=== PATIENT | male | born 1960 | race American Indian/Alaskan Native ===

== ENCOUNTER 2016-08-06 15:47 | Inpatient (IN) | payer SELFPAY ==
[2016-08-06] MEDS ORDERED: ATIVAN ONE (17:07)
[2016-08-06 17:11] LABS: Basophils % (Auto) 0.8 % (0.0-1.8); Hematocrit 36.8 % (35.5-45.6); Hemoglobin 11.9 gm/dl (11.8-15.2); Mean Corpuscular HGB Conc 32 % (32-34); Mean Corpuscular Hemoglobin 30 pg (28-32); Mean Corpuscular Volume 92 fl (84-94); Platelet Count 313 K/mm3 (140-440); Red Cell Distribution Width 13.3 % (13.2-15.2); White Blood Count 5.2 K/mm3 (4.5-11.0)
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
[2016-08-06 17:13] LABS: INR 0.99 (0.87-1.13)
[2016-08-06] MEDS ORDERED: ATIVAN IV ONE (17:13)
[2016-08-06 17:14] LABS: Partial Thromboplastin Time 24.8 Sec. (24.2-36.6)
--- NOTE | 2016-08-06 17:20 | Cat Scan Report ---
FINAL REPORT PROCEDURE: CT HEAD/BRAIN WO CON TECHNIQUE: Computerized tomography of the head was performed without contrast material. HISTORY: neuro deficits < 6hrs or sx present upon awakening COMPARISON: No prior studies are available for comparison. FINDINGS: Likely small retention cyst is seen in the left maxillary sinus. Mastoid air cells are clear. No calvarial fracture is seen. Idiopathic calcifications are seen in the basal ganglia. Cerebral ventricles are normal in size. There may be minimal subacute to chronic small vessel ischemic changes in the supratentorial white matter. Normal variant cavum vergae is seen. No acute intracranial hemorrhage or mass effect is seen. IMPRESSION: Minimal white matter changes are seen in the supratentorial region likely due to subacute to chronic small vessel ischemic changes. An acute CVA is not seen. Correlation with MRI may be useful given patient's symptoms. Critical results were discussed with at Dr. Melendez at 5:16 p.m. on August 06, 2016.
[2016-08-06] MEDS ORDERED: KEPPRA 1,000 MG/NS 0.75% 100ML 100 ML IV ONE (17:21)
[2016-08-06 17:23] LABS: Anion Gap 19 mmol/L; Blood Urea Nitrogen 12 mg/dL (9-20); Carbon Dioxide 25 mmol/L (22-30); Chloride 97.6 mmol/L (98-107); Glucose 97 mg/dL (75-100); Potassium 4.2 mmol/L (3.6-5.0); Sodium 137 mmol/L (137-145)
[2016-08-06 17:26] LABS: Alanine Aminotransferase 16 units/L (7-56); Albumin 4.2 g/dL (3.9-5); Albumin/Globulin Ratio 1.3 %; Alkaline Phosphatase 48 units/L (35-129); Bilirubin,Direct < 0.2 mg/dL (0-0.2); Bilirubin,Indirect 0.2 mg/dL; Bilirubin,Total 0.4 mg/dL (0.1-1.2); Total Protein 7.4 g/dL (6.3-8.2)
--- NOTE | 2016-08-06 19:03 | Admit Criteria Form ---
Admission Criteria Documentation: SEIZURE Clinical Indications for Admission to Inpatient Care (Place 'X' for any and all applicable criteria): Admission is indicated for seizure and ANY ONE of the following(1)(2)(3)(4)(5): [ X]I. Inpatient admission required rather than observation care (Also use Seizure: Observation Care Criteria as appropriate) because of ANY ONE of the following: [ ]a) Altered mental status that is severe or persistent [ ]b) New focal neurologic deficit that is severe or persistent [ ]c) Metabolic disorder (eg, hypoglycemia, hyponatremia) that is severe or persistent [ ]d) Recurrent seizure [ ]e) Outpatient antiseizure regimen cannot be established (eg , patient cannot tolerate medication, initiation requires inpatient care) [ ]f) Need for ongoing intravenous infusion of antiseizure medication [ ]g) Cardiac arrhythmias of immediate concern [ ]h) Cerebral bleeding, hydrocephalus, or vasospasm monitoring (14) [ ]i) Increased intracranial pressure or cerebral edema monitoring (15) [X ]j) Other treatment or monitoring requiring inpatient admission [ ]II. Status epilepticus [A] or repetitive seizures not controlled with emergent treatment (6)(8) [ ]III. Brain disorder (eg, tumor, edema, and hydrocephalus) that requiring monitoring or intervention available only at inpatient level of care. [ ]IV. Brain insult (eg, severe trauma, stroke, drug toxicity, or withdrawal) that requires monitoring or intervention available only at inpatient level of care (10)(11) Extended stay beyond goal length of stay may be needed for (22) [ ]a) Complications of status epilepticus [ ]b) Refractory status epilepticus [ ]c) Etiology-specific therapy for conditions such as SYSTEMS PROTECTION TECHNICIAN infection, head injury,eclampsia, severe metabolic abnormalities, and brain tumor [ ]d) Residual neurologic damage, [ ]e) Initiation of significant change to anticonvulsant treatment [ ]f) Older patients (65 years or older) [ ]g) Patient requiring intubation (eg, to protect airway) The original [facility] content created by [employer] has been revised. The portions of the content which have been revised are identified through the use of italic text or in bold, and [facility] [employer] has neither reviewed nor approved the modified material. All other unmodified content is copyright [facility]. Please see references footnoted in the original [facility] edition 2016 Admission Criteria Met: Yes
--- NOTE | 2016-08-06 19:25 | Event Note ---
Date: 08/06/16 See H/p in reports Absence+ partial seizures HTN Syncope
[2016-08-06] MEDS ORDERED: TYLENOL PO PRN (19:27)
[2016-08-06] MEDS ORDERED: ZOFRAN IV PRN (19:27)
[2016-08-06] MEDS ORDERED: DILAUDID IV PRN (19:27)
[2016-08-06] MEDS ORDERED: MILK OF MAGNESIA PO PRN (19:27)
[2016-08-06] MEDS ORDERED: PERCOCET 5/325 PO PRN (19:27)
[2016-08-06] MEDS ORDERED: DULCOLAX PR PRN (19:27)
[2016-08-06] MEDS ORDERED: D5/0.45NS 1,000 ML IV SCH (20:00)
[2016-08-06 20:25] LABS: Urine Drugs of Abuse Note Disclamer
[2016-08-06] MEDS ORDERED: LOVENOX SUB-Q ONE (22:01)
[2016-08-06] MEDS: LOVENOX SUB-Q SCH (22:03)
[2016-08-06] MEDS: KEPPRA 750 MG in D5W 100 ML IV SCH (22:06)
[2016-08-06] MEDS ORDERED: SODIUM CHLORIDE FLUSH SYRINGE 10 ML IV PRN (23:18)
--- NOTE | 2016-08-07 00:46 | History and Physical Report ---
CHIEF COMPLAINT: Passed out with focal movement in the right lower extremity. HISTORY OF PRESENT ILLNESS: The patient and the family described that the patient had an absence episode for 30 minutes while at work. He remembers lowering and then he found himself in his boss's office. Also right facial droop and apparently had description of right lower extremity tonic clonic movements. History is very unclear and unreliable. The convincing part of the history is absence seizure for over 30 minutes. PAST MEDICAL HISTORY: Hypertension. Not taking the medications. PAST SURGICAL HISTORY: None. SOCIAL HISTORY: Former smoker. Stopped smoking about few years ago. FAMILY HISTORY: Significant for hypertension. REVIEW OF SYSTEMS: Significant for absence seizure versus syncope and right lower extremity focal seizure. Review of systems is otherwise negative. A 14-point review of systems is significant for absence seizure, possible syncope and right lower extremity tonic clonic movement. A 14-point review of systems is otherwise negative. PHYSICAL EXAMINATION: GENERAL: Middle aged male, cooperative during examination. VITAL SIGNS: Blood pressure is 150/73, temperature is 98.9, pulse is 89, respiratory rate is 17, O2 sats 97%. HEENT: Unremarkable. Pupils are equal and reactive. NECK: Supple, no lymphadenopathy, no thyromegaly. LUNGS: Clear to auscultation and percussion. Good air entry. CARDIOVASCULAR: S1, S2 heard. No gallop, no murmur, no rub. Apical impulse in left fifth intercostal space and midclavicular line. ABDOMEN: Soft and benign. No hepatosplenomegaly. No guarding, no rigidity. Hernial orifices are normal. EXTREMITIES: Good pedal pulses. No pedal edema. CENTRAL NERVOUS SYSTEM: Alert and oriented at the time of my evaluation. LABORATORY DATA: Significant for white count of 5200, H and H are 11.9 and 36.8, platelet count is 313,000. Protime is 13, INR is 0.99, PTT is 24.8. Sodium is 137, potassium is 4.2, chloride is 97.6, bicarbonate is 25, BUN and creatinine are 12 and 0.8, glucose is 97, and calcium is 9.0. Total bilirubin is 0.4, direct bili is less than 0.2, indirect bili is 0.2, AST is 18, alkaline phosphatase is 48. Troponin is less than 0.010. Total protein is 7.4, albumin is 4.2. CT of the head shows minimal white matter changes seen in the supratentorial region, likely subacute chronic small vessel ischemic changes. Acute CVA is not seen. ASSESSMENT AND PLAN: 1. Absence seizure. The patient was started on IV Keppra. The patient may not need Keppra at this point, but for prevention of tonic clonic seizures Keppra was given. 2. Syncope. Syncope workup in the form of carotid duplex scan and echocardiogram. 3. Cerebrovascular accident, possible. We will get MRI and MRA and echocardiogram and carotid duplex scan. 4. Hypertension, borderline. We will initiate him on Coreg 6.25 q.12 h. 5. Deep venous thrombosis prophylaxis, Lovenox 40 mg subcutaneous daily. In summary, the history is very unreliable and there is a possibility of absence seizure versus syncope. Workup involving the syncope, absence seizure, and ruling out CVA. Possible admission for 24 to 48 hours. JOB# [id number] KALI/BIRGIT EAGLE
[2016-08-07] MEDS ORDERED: ASPIRIN PO SCH (01:00)
[2016-08-07 05:49] LABS: Basophils % (Auto) 0.5 % (0.0-1.8); Eosinophils % (Auto) 0.5 % (0.0-4.3); Hemoglobin 11.6 gm/dl (11.8-15.2); Mean Corpuscular HGB Conc 33 % (32-34); Mean Corpuscular Hemoglobin 30 pg (28-32); Mean Corpuscular Volume 91 fl (84-94); Platelet Count 282 K/mm3 (140-440); Red Blood Count 3.86 M/mm3 (3.65-5.03); Red Cell Distribution Width 13.5 % (13.2-15.2); White Blood Count 4.9 K/mm3 (4.5-11.0)
[2016-08-07 06:04] LABS: Alanine Aminotransferase 12 units/L (7-56); Albumin 3.7 g/dL (3.9-5); Albumin/Globulin Ratio 1.2 %; Alkaline Phosphatase 42 units/L (35-129); BUN/Creatinine Ratio 11.11; Bilirubin,Total 0.5 mg/dL (0.1-1.2); Blood Urea Nitrogen 10 mg/dL (9-20); Calcium 8.6 mg/dL (8.4-10.2); Carbon Dioxide 28 mmol/L (22-30); Chloride 101.3 mmol/L (98-107); Glucose 86 mg/dL (75-100); Potassium 3.8 mmol/L (3.6-5.0); Sodium 141 mmol/L (137-145); Total Protein 6.7 g/dL (6.3-8.2)
[2016-08-07 06:12] LABS: Anion Gap 16 mmol/L
[2016-08-07 06:36] LABS: Cholesterol 202 mg/dL (50-199); HDL Cholesterol 97 mg/dL (40-59); LDL Cholesterol,Direct 99 mg/dL (50-130); Triglycerides 33 mg/dL (2-149)
--- NOTE | 2016-08-07 10:46 | Magnetic Resonance Report ---
MRI BRAIN WITHOUT CONTRAST INDICATION: Stroke. COMPARISON: Head CT from last evening. FINDINGS: Noncontrast multiplanar and multisequence MRI of the brain demonstrates normal ventricles and sulci without acute infarct, hemorrhage, mass effect or midline shift. Mild periventricular and few white matter FLAIR and T2 weighted hyperintensities. Benign bilateral basal ganglia calcifications. No abnormal extra-axial masses or fluid collections. Normal major intracranial vascular flow voids. Normal posterior fossa structures with symmetric seventh and eighth nerve complexes. Symmetric, grossly unremarkable eye globes. Mild ethmoid and maxillary sinusitis as also approximately 1.3 cm left sphenoid sinus mucous retention cyst posteriorly, axial series 6, image 6. Mild right sphenoid sinusitis seen on prior CT not as well appreciated on MRI. Clear remainder imaged paranasal sinuses and mastoid air cells. Normal midline structures without evidence of Chiari malformation. CONCLUSION: No acute intracranial MRI abnormality with mild microvascular changes and sinusitis noted, as described. Thank you for the opportunity to participate in this patient's care.
--- NOTE | 2016-08-07 10:58 | Echocardiography Report ---
Transthoracic Echocardiogram Indication: Stroke BP: 109/59 Conclusions *Global left ventricular systolic function is normal. *The estimated ejection fraction is 55-60%. *The left atrium is normal in size with no visual thrombus identified. *The right ventricular global systolic function is normal. *There is no evidence of aortic regurgitation. *There is mild mitral regurgitation. *There is mild tricuspid regurgitation. *The right ventricular systolic pressure is calculated at 24 mmHg. *There is no dilatation of the ascending aorta. *Intravenous agitated saline contrast was used to assess intracardiac shunting. intra septum in intact, negative bubble study Findings Left Ventricle: The left ventricular chamber size is normal. Global left ventricular wall motion and contractility are within normal limits. Global left ventricular systolic function is normal. The estimated ejection fraction is 55-60%. Normal left ventricular diastolic filling is observed. Left Atrium: The left atrium is normal in size with no visual thrombus identified. Right Ventricle: The right ventricular cavity size is normal. The right ventricular global systolic function is normal. Right Atrium: The right atrium appears normal. Aortic Valve: The aortic valve structure is normal. There is no evidence of aortic regurgitation. There is no evidence of aortic stenosis. Mitral Valve: The mitral valve leaflets appear normal. There is mild mitral regurgitation. There is no evidence of mitral stenosis. Tricuspid Valve: The tricuspid valve leaflets are normal. There is mild tricuspid regurgitation. The right ventricular systolic pressure is calculated at 24 mmHg. There is no tricuspid stenosis. Pulmonic Valve: The pulmonic valve appears normal. There is trace pulmonic regurgitation. There is no pulmonic stenosis. Pericardium: There is no pericardial effusion. Aorta: There is no dilatation of the ascending aorta. Venous: The inferior vena cava appears normal in size. Contrast: Intravenous agitated saline contrast was used to assess intracardiac shunting. intra septum in intact, negative bubble study Measurements Chambers MM Name Value Normal Range Ao root diameter (MM) 3.1 cm (2 - 3.7) LA dimension (AP) MM 3.4 cm (1.9 - 4) LA:Ao ratio (MM) 1.1 ratio - AV cusp separation (MM) 2 cm (1.5 - 2.6) Chambers 2D Name Value Normal Range RVIDd (AP) 2D 3.15 cm (0.9 - 2.6) IVSd (2D) 1.03 cm (0.6 - 1.1) LVPWd (2D) 1.06 cm (0.6 - 1.1) IVS:LVPW ratio (2D) 0.97 ratio - LVIDd (2D) 4.54 cm (3.7 - 5.6) LVIDs (2D) 3.09 cm (2 - 3.8) LV FS (Teichholz) (2D) 31.9 % - LV FS (cube) (2D) 31.9 % - EF Teichholz (2D) 60.2 % - Ao root diameter (2D) 3.4 cm (2 - 3.7) LA dimension (AP) 2D 3.2 cm (1.9 - 4) LA:Ao ratio (2D) 0.94 ratio - Volumes/Mass Name Value Normal Range LA ESV SP 4CH (MOD) 30 ml - LA ESV SP 2CH (MOD) 50 ml - LA ESV BP (MOD) 39 ml - LA ESV BP (MOD) index 19.7 ml/m2 - LV EDV SP 4CH (MOD) 73 ml - LV ESV SP 4CH (MOD) 32 ml - EF SP 4CH (MOD) 56 % - LV EDV SP 2CH (MOD) 79 ml - LV ESV SP 2CH (MOD) 27 ml - EF SP 2CH (MOD) 66 % - LV EDV BP 76 ml - LV ESV BP 29 ml - BP EF (MOD) 62 % - Diastolic/Systolic Function Name Value Normal Range MV E-wave Vmax 0.6 m/sec - MV deceleration time 194 msec - MV A-wave Vmax 0.51 m/sec - MV E:A ratio 1.2 ratio - LV septal e' Vmax 0.12 m/sec - LV lateral e' Vmax 0.14 m/sec - LV E:e' septal ratio 5.1 ratio - LV E:e' lateral ratio 4.1 ratio - Aortic Valve Name Value Normal Range AV VTI 26.6 cm - AV mean gradient 4 mmHg - LVOT diameter 2.2 cm - LVOT VTI 23 cm - LVOT mean gradient 3 mmHg - SV LVOT 87 ml - JADEN (continuity VTI) 3.29 cm2 - Mitral Valve Name Value Normal Range MV PHT 53 msec - MVA (PHT) 4.15 cm2 - Tricuspid Valve Name Value Normal Range TR Vmax 2.28 m/sec - TR peak gradient 21 mmHg - RAP 3 mmHg - RVSP 24 mmHg - Pulmonic Valve/Qp:Qs Name Value Normal Range PV Vmax 1 m/sec - PV peak gradient 4 mmHg - SD end-diastolic Vmax 0.84 m/sec - RVOT diameter 3.6 cm - PV acceleration time 155 msec -
--- NOTE | 2016-08-07 11:03 | Magnetic Resonance Report ---
MRA HEAD WITHOUT CONTRAST INDICATION: Stroke. COMPARISON: None similar. FINDINGS: MRA of the head performed without intravenous contrast and demonstrates no evidence of flow-limiting stenosis, occlusion or vascular malformation. Left cavernous ICA noted mildly more prominent caliber than the right. 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 Please note that detection of aneurysms less than 5 mm is limited on this exam. CONCLUSION: Normal study of the [place]. Thank you for the opportunity to participate in this patient's care.
--- NOTE | 2016-08-07 11:12 | Discharge Summary ---
Providers - Providers Date of Admission: 08/06/16 19:27 Date of discharge: 08/07/16 Attending physician: ANGELA NOWAK 08/06/16 23:18 Occupational Therapy Evaluate and Treat [CONS] Routine Comment: Reason For Exam: Neuro deficits Physical Therapy Evaluation and Treat [CONS] Routine Comment: Reason For Exam: Neuro deficits Primary care physician: BOTTLE CARRIER Hospitalization Condition: Stable Hospital course: Patient is a 56-year-old man with a history of hypertension who presents with confusion at work. Patient states he never passed out or had a seizure. There is no history of lip biting or smacking. 08/06/2016 transthoracic echocardiogram: Global left ventricular systolic function is normal. Estimated ejection fraction 55-60%. Left atrium is normal size with no visual thrombus. Right ventricular global systolic function is normal. There is no evidence aortic regurgitation. There is mild mitral regurgitation. There is mild tricuspid regurgitation. Right ventricular systolic pressure 24 mmHg. There is no dilatation of ascending aorta. Negative bubble study. 08/06/2016 carotid Doppler study: Negative 08/07/2016 Brain MRI without contrast: No acute infarct or hemorrhage, maxillary and ethmoid sinus disease 1. TIA, most likely, LDL at 99 2. Acute encephalopathy, resolved 3. Hypertension 4. Acute maxillary sinusitis Time of discharge 32 minutes Disposition: DISCHARGED TO HOME OR SELFCARE Core Measure Documentation - Palliative Care Palliative Care/ Comfort Measures: Not Applicable - Core Measures Any of the following diagnoses?: none - VTE Discharge Requirements Deep Vein Thrombosis/Pulmonary Embolism Present on Admission: No Has pt received <5 days of overlap therapy or INR<2.0: No Anticoagulant overlap therapy prescribed at discharge: No Contraindication No Overlap Therapy order at DC: Not Indicated Exam - Physical Exam Narrative exam: GEN: WDWN, NAD, AWAKE, ALERT, ORIENTATED x 3. HEENT: NCAT, PERRL, EOMI, OP CLEAR NECK: SUPPLE, NO THYROMEGALY, NO JVD, NO LAD CVS: RRR, NORMAL S1S2 LUNGS/CHEST: CTA B, NORMAL CHEST EXPANSION B, GOOD AIR ENTRY B ABD: SOFT NTND, GBS, NO REBOUND OR GUARDING EXT/SKIN: NO SIGNIFICANT EDEMA OR RASH MSK: FROM X 4 EXTREMITIES NEURO: CN 2-12 GROSSLY INTACT, NO FOCAL DEFICITS PSY: CALM - Constitutional Vitals: Temp Pulse Resp BP Pulse Ox 99.2 F 75 18 109/59 96 08/07/16 07:51 08/07/16 07:51 08/07/16 07:51 08/07/16 07:51 08/07/16 07:51 Plan Activity: advance as tolerated (no strenous activites until cleared by PCP. ), no driving until cleared by PCP, fall precautions Diet: low salt Additional Instructions: Neurologist Dr. Kaminski follow-up. anthony for sinusitis found on mri brain Follow up with: PRIMARY MD SUZANNE [Primary Care Provider] - 7 Days NIKHIL KAMINSKI MD [Staff Physician] - 7 Days Prescriptions: Simvastatin [Zocor TAB] 20 mg PO QHS #30 tablet Aspirin [Aspirin BABY CHEW TAB] 81 mg PO QDAY #30 tab Azithromycin [Zithromax Z-JESUS] 1 dose PO DAILY #1 pack
[2016-08-07] MEDS: LOVENOX SUB-Q SCH (13:30)
[2016-08-07] MEDS: KEPPRA 750 MG in D5W 100 ML IV SCH (15:07)
[2016-08-07 16:08] VITALS: BP 122/77
[2016-08-07] MEDS ORDERED: ZOCOR PO SCH (22:00)
--- NOTE | 2016-08-11 07:47 | Vascular Lab Report ---
CAROTID DUPLEX STUDY: RIGHT PSVEDV CCA [id number] CCA [id number] ICA PROX:[id number] ICA MID:[id number] ICA DIST:[id number] ECA: 105 VERT: 59 18 LEFT PSVEDV CCA [id number] CCA DIST:[id number] ICA PROX:[id number] ICA MID:[id number] ICA DIST:[id number] ECA: 115 VERT: 59 20 REASON FOR EXAM: Stroke. COMMENTS ON THE RIGHT: Doppler frequency analysis is consistent with 16 to 49 percent diameter reduction of the internal carotid artery. Minimal amount of plaque is seen. The common carotid artery is patent. The external carotid artery is patent. The vertebral artery has antegrade flow. COMMENTS ON THE LEFT: Doppler frequency analysis is consistent with 16 to 49 percent diameter reduction of the internal carotid artery. Minimal amount of plaque is seen. The common carotid artery is patent. The external carotid artery is patent. The vertebral artery has antegrade flow. IMPRESSION: Less than 50% diameter reduction in the internal carotid arteries bilaterally. Consider repeat carotid artery duplex in 12 months.
== END 2016-08-07 18:48 | disposition home or self-care (01) | DRG 69 ==
LOC: ED 15:47 → 3A 19:27
PROVIDERS: ADMIT Internal Medicine; ATTEND Internal Medicine
DX: G45.9 Transient cerebral ischemic attack, unspecified (principal); G93.40 Encephalopathy, unspecified; R56.9 Unspecified convulsions; J01.00 Acute maxillary sinusitis, unspecified; I10 Essential (primary) hypertension; Z91.14 Patient's other noncompliance with medication regimen; Z87.891 Personal history of nicotine dependence; Z91.013 Allergy to seafood; Z82.49 Family history of ischemic heart disease and other diseases of the circulatory system
CPT/HCPCS: 36415; 70450; 70544; 70551; 80048; 80053; 80061; 80074; 80307; 82962; 84484; 85025; 85610; 85670; 85730; 93005; 93010; 93306; 93880; J1650; J1953; J2060